=== PATIENT | female | born 1955 | race Caucasian/White ===

== ENCOUNTER → 2017-06-01 | Outpatient (CLI) | payer BC | END | disposition home or self-care (01) | LOC: CFH 08:48 | PROVIDERS: ATTEND Family Medicine | DX: Z12.31 Encounter for screening mammogram for malignant neoplasm of breast (principal) | CPT/HCPCS: 77063; G0202 ==

== ENCOUNTER → 2020-04-13 | Outpatient (CLI) | payer OTHER | END | disposition home or self-care (01) | LOC: CFH 09:36 | PROVIDERS: ATTEND Nurse Practitioner Primary Care | DX: Z12.31 Encounter for screening mammogram for malignant neoplasm of breast (principal); N64.89 Other specified disorders of breast | CPT/HCPCS: 77067 ==

== ENCOUNTER 2020-09-02 06:33 | Day surgery (SDC) | payer SELFPAY ==
[2020-09-01 13:56] LABS: ALANINE AMINOTRANSFERASE 58 U/L (12-78); ALBUMIN 3.9 g/dL (3.4-5.0); ANION GAP 5 mmol/L (5-15); CALCIUM 8.9 mg/dL (8.5-10.1); CHLORIDE 110 mmol/L (98-107)
[2020-09-01 13:59] LABS: ALKALINE PHOSPHATASE 130 U/L (45-117); BILIRUBIN,TOTAL 0.3 mg/dL (0.2-1.0); TOTAL PROTEIN 7.9 g/dL (6.4-8.2)
[~2020-09-02] VITALS: Ht 162.6 cm; Wt 87.1 kg
[~2020-09-02 06:33] MED LIST: CHOL10003 PO; CHRM1TAB PO; LISI-170 PO
[2020-09-02 06:59] VITALS: BP 178/90
[2020-09-02] MEDS ORDERED: LIDOCAINE-MPF 1%, 2ML INFIL ONE (07:00)
[2020-09-02] MEDS ORDERED: LACTATED RINGERS 1,000 ML IV SCH (07:00)
[2020-09-02] MEDS ORDERED: CHLORHEXIDINE 15 ML UDC MM ONE (07:00)
[2020-09-02] MEDS ORDERED: CHLORHEXIDINE 15 ML UDC ONE (07:01)
[2020-09-02] MEDS ORDERED: LIDOCAINE-MPF 1%, 2ML ONE (07:01)
[2020-09-02] MEDS ORDERED: MIDAZOLAM 1 MG/ML, 2ML ONE (07:20)
[2020-09-02] MEDS ORDERED: FENTANYL PF 250 MCG/5ML ONE (07:20)
[2020-09-02] MEDS ORDERED: ISOSULFAN BLUE 10 MG/ML, 5ML IV ONE (07:37)
[2020-09-02] MEDS ORDERED: BUPIVACAINE/PF 0.5% ONE (07:37)
[2020-09-02] MEDS ORDERED: EPINEPHRINE 1 MG/ML, 1ML ONE (07:37)
[2020-09-02] MEDS ORDERED: HYDROmorphone 1 MG/ML, 1ML INJ IVPush PRN (08:00)
[2020-09-02] MEDS ORDERED: HALOPERIDOL 5 MG/ML IV PRN (08:00)
[2020-09-02] MEDS ORDERED: LABETALOL 5MG/ML, 20ML IV PRN (08:00)
[2020-09-02] MEDS ORDERED: morphine SULFATE 10 MG/ML, 1ML IVPush PRN (08:00)
[2020-09-02] MEDS ORDERED: PROMETHAZINE 25 MG/ML, 1ML IVPush PRN (08:00)
[2020-09-02] MEDS ORDERED: FENTANYL PF 100 MCG/2ML IV PRN (08:00)
[2020-09-02] MEDS ORDERED: ACETAMINOPHEN 325 MG TABLET PO PRN (08:00)
[2020-09-02] MEDS ORDERED: hydrALAzine 20 MG/ML, 1ML IV PRN (08:00)
[2020-09-02] MEDS ORDERED: MEPERIDINE/PF 25MG/0.5ML IVPush PRN (08:00)
[2020-09-02] MEDS ORDERED: PROPOFOL 10 MG/ML, 20ML ONE (08:26)
[2020-09-02] MEDS ORDERED: ONDANSETRON 2MG/ML, 2ML ONE (08:26)
[2020-09-02] MEDS ORDERED: CEFAZOLIN 1,000 MG ONE (08:26)
[2020-09-02] MEDS ORDERED: HYDR-1067 PO (08:46)
[2020-09-02] MEDS ORDERED: ONDA4TAB7 PO (08:46)
== END 2020-09-02 10:00 | disposition home or self-care (01) ==
LOC: OUT 06:33
PROVIDERS: ATTEND Surgery
DX: N64.52 Nipple discharge (principal); D24.2 Benign neoplasm of left breast; I10 Essential (primary) hypertension; E66.9 Obesity, unspecified; Z88.8 Allergy status to other drugs, medicaments and biological substances; Z72.89 Other problems related to lifestyle; Z68.32 Body mass index [BMI] 32.0-32.9, adult; Z79.899 Other long term (current) drug therapy; Z20.822 Contact with and (suspected) exposure to COVID-19
CPT/HCPCS: 19110; 36415; 80053; 87635; 88305; 93005; J0171; J0690; J2250; J2405; J2704; J3010; J7120; U0003